=== PATIENT | male | born 1990 | race Caucasian/White ===

== ENCOUNTER 2017-04-10 16:41 | Emergency (ER) | payer OTHER ==
[2017-04-10] MEDS ORDERED: HYDROmorphone 1 MG/ML 1 ML SYRINGE IVP STA (17:44)
[2017-04-10] MEDS ORDERED: ONDANSETRON 4 MG/2 ML VIAL IVP STA (17:45)
[2017-04-10] MEDS ORDERED: ceFAZolin 2 GM in SODIUM CHLORIDE 0.9% 100 ML IVPB STA (17:46)
--- NOTE | 2017-04-10 17:49 | ED ---
Upper Extremity HPI - General Chief Complaint: Extremity Injury, Upper Stated Complaint: Hand Crushed-[facility] Time Seen by Provider: 04/10/17 17:40 Source: patient, RN notes reviewed, old records reviewed Mode of arrival: ambulatory Limitations: no limitations - History of Present Illness Initial Comments: This is a 26-year-old male presenting to the emergency department with right hand injury after it was crushed between 2 rollers at work. Patient reports that he has lacerations over his fourth and third distal fingers. He reports that he has pain up the entire hand. 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 Patient states that he has difficulty with range of motion of the hand and wrist. Denies any elbow or shoulder pain. Patient reports his tetanus is not up-to-date. He has never seen an orthopedic physician. He is right-handed.Patient denies any recent fever, chills, shortness of breath, chest pain, back pain, abdominal pain, nausea vomiting, numbness or tingling, dysuria or hematuria, constipation or diarrhea, headaches or visual changes, or any other current symptoms Place: work - Related Data Previous Rx's Medication Instructions Recorded Cephalexin [Keflex] 500 mg PO Q6HR 10 Days 04/10/17 HYDROcodone/APAP 10-325MG [[place] 1 tab PO Q6H PRN #20 tab 04/10/17 10-325] Allergies Allergy/AdvReac Type Severity Reaction Status Date / Time No Known Allergies Allergy Verified 04/10/17 17:45 Review of Systems ROS Statement: Those systems with pertinent positive or pertinent negative responses have been documented in the HPI. ROS Other: All systems not noted in ROS Statement are negative. Past Medical History Past Medical History: No Reported History History of Any Multi-Drug Resistant Organisms: None Reported Additional Past Surgical History / Comment(s): breast reduction, liposuction Past Psychological History: No Psychological Hx Reported Smoking Status: Former smoker Past Alcohol Use History: Daily Past Drug Use History: None Reported General Exam - General Exam Comments Initial Comments: This is a pleasant 26-year-old male. He does appear to be somewhat anxious due to an injury. Limitations: no limitations General appearance: alert, in no apparent distress Head exam: Present: atraumatic, normocephalic, normal inspection Eye exam: Present: normal appearance, PERRL, EOMI. Absent: scleral icterus, conjunctival injection, periorbital swelling ENT exam: Present: normal exam, mucous membranes moist Neck exam: Present: normal inspection. Absent: tenderness, meningismus, lymphadenopathy Respiratory exam: Present: normal lung sounds bilaterally. Absent: respiratory distress, wheezes, rales, rhonchi, stridor Cardiovascular Exam: Present: regular rate, normal rhythm, normal heart sounds. Absent: systolic murmur, diastolic murmur, rubs, gallop, clicks GI/Abdominal exam: Present: soft, normal bowel sounds. Absent: distended, tenderness, guarding, rebound, rigid Extremities exam: Present: normal inspection, full ROM, normal capillary refill. Absent: tenderness, pedal edema, joint swelling, calf tenderness Right Upper Arm exam: Present: normal inspection, full ROM Elbow exam: Present: normal inspection, full ROM Forearm Wrist exam: Absent: normal inspection, full ROM (Patient has difficulty flexing and extending his right wrist due to pain and swelling.) Hand Wrist exam: Present: tenderness, swelling, abrasion, laceration. Absent: normal inspection (Chest diffuse swelling over the dorsal aspect of his wrist. Patient has lacerations over the distal third and fourth finger adjacent to the nail bed. Patient's nailbeds are totally removed.), full ROM, ecchymosis, deformity, crepitus Hand L/R Back: 1 - swelling and bruising 2 - laceration measuring 4cm 3 - laceration from nail bed. Nail is avulsed and will not stay back. Neuro motor exam: Absent: wrist extension intact, thumb opposition intact, thumb IP flexion intact, thumb adduction intact, fingers 2-5 abduction intact Vascular: Present: normal capillary refill Back exam: Present: normal inspection Neurological exam: Present: alert, oriented X3, CN II-XII intact Psychiatric exam: Present: normal affect, normal mood Skin exam: Present: warm, dry, intact, normal color. Absent: rash Course Vital Signs 04/10/17 04/10/17 17:10 20:17 Temperature 99.2 F 98.6 F Pulse Rate 67 91 Respiratory 18 16 Rate Blood Pressure 128/70 135/67 O2 Sat by Pulse 98 94 L Oximetry Procedures - Laceration Laceration #1 Indication: laceration Site: hand (middle finger ) Size (cm): 4 Description: linear Depth: simple, single layer Anesthetic Used: benzocaine 0.25% Anesthesia Technique: nerve block Amount (mls): 4 Pre-repair: wound explored, irrigated extensively Type of Sutures: nylon Size of Sutures: 5-0 Number of Sutures: 6 Technique: simple, interrupted Patient Tolerated Procedure: well, no complications Medical Decision Making - Medical Decision Making This is a pleasant 26-year-old male with right hand or injury after having crushed between 2 rolling pens at work. Patient is right-handed. Patient's x- ray shows no acute fracture. Patient was given 6 sutures over the middle phalanx. The second phalanx nailbed is coming off somewhat. I tried to repair it however we remove the nail and he continues to bleed severely. Patient will be placed with a Gelfoam area over the nail. Patient will be given a referral for Dr. Wilcox. Patient is given 2 g of and updated on his tetanus. Started on Keflex. Patient understands return parameters. He also be written for pain medication. He was discharged with tube gauze and Kerlix wrap around the hand and wrist. Patient will be given a note for work until he is able to follow-up with the surgical technologist. I also discussed this case with Dr. hung. He did a physical exam of the patient as well as recommened keeping the nail bed intact. - Lab Data Result diagrams: 04/10/17 18:00 04/10/17 18:00 Lab Results 04/10/17 04/10/17 Range/Units 18:00 18:00 WBC 10.6 (3.8-10.6) k/uL RBC 4.70 (4.30-5.90) m/uL Hgb 15.8 (13.0-17.5) gm/dL Hct 45.7 (39.0-53.0) % MCV 97.4 (80.0-100.0) fL MCH 33.7 (25.0-35.0) pg MCHC 34.6 (31.0-37.0) g/dL RDW 13.1 (11.5-15.5) % Plt Count 212 (150-450) k/uL Neutrophils % 81 % Lymphocytes % 11 % Monocytes % 7 % Eosinophils % 0 % Basophils % 1 % Neutrophils # 8.5 H (1.3-7.7) k/uL Lymphocytes # 1.1 (1.0-4.8) k/uL Monocytes # 0.7 (0-1.0) k/uL Eosinophils # 0.1 (0-0.7) k/uL Basophils # 0.1 (0-0.2) k/uL Sodium 140 (137-145) mmol/L Potassium 4.0 (3.5-5.1) mmol/L Chloride 103 (98-107) mmol/L Carbon Dioxide 27 (22-30) mmol/L Anion Gap 10 mmol/L BUN 14 (9-20) mg/dL Creatinine 1.16 (0.66-1.25) mg/dL Est GFR (MDRD) Af Amer >60 (>60 ml/min/1.73 sqM) Est GFR (MDRD) Non-Af >60 (>60 ml/min/1.73 sqM) Glucose 113 H (74-99) mg/dL Calcium 9.3 (8.4-10.2) mg/dL - Radiology Data Radiology results: report reviewed No definite fracture seen. Soft tissue deformity. Disposition Clinical Impression: Laceration of finger nail bed, Crushing injury of right hand and finger Disposition: HOME SELF-CARE Condition: Good Instructions: Finger Laceration (ED), Hand Sprain (ED) Additional Instructions: Patient advised to follow-up with Dr. Wilcox tomorrow or the next day. Remain in the finger splint until seen by orthopedic physician. Return to the emergency department if any alarming signs or symptoms occur. Patient denies to keep the hand wrapped. Complete her antibiotic prescription. Prescriptions: Cephalexin [Keflex] 500 mg PO Q6HR 10 Days HYDROcodone/APAP 10-325MG [[place] 10-325] 1 tab PO Q6H PRN #20 tab PRN Reason: Pain Referrals: Moody Wilcox DO [Doctor of Osteopathic Medicine] - 1-2 days Time of Disposition: 19:49
[2017-04-10 18:12] LABS: Basophils # (A) 0.1 k/uL (0-0.2); Basophils % (A) 1 %; CH 33.6; CHCM 34.7; Eosinophils # (A) 0.1 k/uL (0-0.7); Eosinophils % (A) 0 %; HCT 45.7 % (39.0-53.0); HDW 2.36; HGB 15.8 gm/dL (13.0-17.5); Luc # (Auto) 0.13; Luc % (Auto) 1; Lymphocytes # (A) 1.1 k/uL (1.0-4.8); Lymphocytes % (A) 11 %; MCH 33.7 pg (25.0-35.0); MCHC 34.6 g/dL (31.0-37.0); MCV 97.4 fL (80.0-100.0); Mean Platelet Volume 7.1; Monocytes # (A) 0.7 k/uL (0-1.0); Monocytes % (A) 7 %; Neutrophils # (A) 8.5 k/uL (1.3-7.7); Neutrophils % (A) 81 %; RDW 13.1 % (11.5-15.5); WBC 10.6 k/uL (3.8-10.6); WBC (Perox) 10.15
[2017-04-10 18:21] LABS: Anion Gap 10 mmol/L; Blood Urea Nitrogen 14 mg/dL (9-20); Calcium 9.3 mg/dL (8.4-10.2); Carbon Dioxide 27 mmol/L (22-30); Chloride 103 mmol/L (98-107); Glucose 113 mg/dL (74-99); Non-African American GFR(MDRD) >60 (>60 ml/min/1.73 sqM); Sodium 140 mmol/L (137-145)
--- NOTE | 2017-04-10 18:37 | XR ---
EXAMINATION TYPE: XR hand complete RT DATE OF EXAM: 04/10/2017 6:26 PM COMPARISON: NONE HISTORY: Injury TECHNIQUE: 3 views FINDINGS: Detail is limited by the bandages. I see no fracture nor dislocation. There is soft tissue deformity and laceration at the tip of the middle finger and the ring finger. IMPRESSION: No definite fracture seen. Soft tissue deformity.
--- NOTE | 2017-04-10 18:38 | XR ---
EXAMINATION TYPE: XR wrist complete RT DATE OF EXAM: 04/10/2017 6:26 PM COMPARISON: NONE HISTORY: Pain TECHNIQUE: 4 views FINDINGS: I see no fracture nor dislocation. Joint spaces are normal. There are no pathologic calcifi cations. IMPRESSION: Negative right wrist exam
[2017-04-10] MEDS ORDERED: DIPH,PERTUS(ACELL)TETVAC-LF 0.5 ML VIAL IM ONE (18:40)
[2017-04-10] MEDS ORDERED: GELATIN SPONGE,ABSORB (SMALL) 1 EACH SPONGE TOPICAL STA (19:20)
[2017-04-10 20:19] VITALS: BP 135/67; PULSE 91; RESP 16; TEMP 98.6
== END 2017-04-10 20:19 | disposition home or self-care (01) ==
LOC: EC 16:41
DX: S61.212A Laceration without foreign body of right middle finger without damage to nail, initial encounter (principal); S61.210A Laceration without foreign body of right index finger without damage to nail, initial encounter; S60.221A Contusion of right hand, initial encounter; Z23 Encounter for immunization; Z87.891 Personal history of nicotine dependence; W23.0XXA Caught, crushed, jammed, or pinched between moving objects, initial encounter; Y99.0 Civilian activity done for income or pay
CPT/HCPCS: 36415; 80048; 85025; 73110; 73130; 90715; 99284; 12002; 96365; 96366; 96375 ×2; 90471; J0690; J2405; J1170